=== PATIENT | male | born 1955 | race African-American/Black ===

== ENCOUNTER 2024-12-25 16:41 | Inpatient (IN) | payer OTHER, SELFPAY ==
[2024-12-25 18:02] LABS: Absolute Lymphocytes (CBC) 0.8 K/uL (0.7-4.9); Hematocrit 35.9 % (39.6-49.0); Hemoglobin 11.6 g/dL (13.6-17.9); MCH 27.5 pg (27.0-35.0); MCHC 32.4 g/dL (32.0-36.0); MCV 84.8 fL (80-100); MPV 8.4 fL (7.6-11.3); Nucleated RBC Absolute Count 0.0 (0-0); Nucleated Red Blood Cells % 0.1 % (0-0); RBC Red Blood Cell Count 4.23 M/uL (4.33-5.43); White Blood Count 12.00 thou/uL (4.3-10.9)
[2024-12-25 18:11] LABS: PT Prothrombin Time 13.2 SECONDS (10-13.0); PTT, Activated Partial Thromb 28.9 SECONDS (27.2-37.4); Protime INR 1.17
[2024-12-25 18:21] LABS: ALT/SGPT 35.0 U/L (16-61); AST/SGOT 25.0 U/L (15-37); Albumin 3.2 g/dL (3.4-5.0); Albumin/Globulin Ratio 0.7 (1.1-1.8); Alkaline Phosphatase 97.0 U/L (45-117); Anion Gap 13.9 mEq/L (5.0-15.0); BUN Blood Urea Nitrogen 48.0 mg/dL (7-18); Globulin 4.5 g/dL (2.3-3.5); Glucose Level 115.0 mg/dL (74-106); Potassium 3.9 mEq/L (3.5-5.1)
[2024-12-25] MEDS: VANCOMYCIN 1.5 GM in NA CHLORIDE 0.9% 500 ML IVPB ONE (19:00)
[2024-12-25] MEDS ORDERED: NA CHLORIDE 0.9% 1,000 ML ONE (19:01)
--- NOTE | 2024-12-25 19:01 | EDPHYS ---
Physician Documentation [facility] Name: Yordan Doe Age: 69 yrs Sex: Male : 1955 Arrival Date: 12/25/2024 Time: 16:41 Bed 16 Private MD: ED Physician Remington Tiwari HPI: 12/25 17:42 This 69 yrs old Male presents to ER via Ambulatory with complaints of Wound Check. sb4 18:15 Patient thinks he was "bitten by a spider "5 days ago and has a wound on his left sb4 forearm. States that there is a "hole "in it and he has been squeezing it and pus has been coming out. One of his friends who is a nurse looked at it and told him to come to the ED. Historical: - Allergies: 17:02 No Known Allergies; ll1 - PMHx: 17:02 Hypertensive disorder; acid reflux; prostate CA, prostate problems; Myocardial ll1 infarction; - PSHx: 17:02 None; ll1 - Immunization history:: Adult Immunizations. - Infectious Disease History:: Denies. - Social history:: Smoking status: Patient reports the use of cigarette tobacco products, Reported history of juuling and/or vaping. ROS: 18:15 Constitutional: Negative for fever, chills, and weight loss, sb4 18:15 Skin: Positive for abscess, of the left wrist, 18:15 All other systems are negative, Exam: 18:15 Head/Face: Normocephalic, atraumatic. Eyes: Extra-ocular motions intact. Periorbital sb4 areas with no swelling, redness, or edema. ENT: Mucous membranes moist. Respiratory: No increased work of breathing, no retractions or nasal flaring. 18:15 Constitutional: The patient appears alert, awake, unkempt, 18:15 Skin: abscess, that is moderate sized, of the left wrist, with drainage, that is purulent, with surrounding cellulitis, that is mild, Vital Signs: 17:04 BP 95 / 57; Pulse 77; Resp 17; Temp 97.1; Pulse Ox 99% ; Weight 99.79 kg; Height 6 ft. ll1 1 in. ; Pain 7/10; 18:03 BP 109 / 60; Pulse 70; Resp 16; Temp 97.7; Pulse Ox 100% ; ts3 19:00 BP 121 / 61; Pulse 61; Resp 18; Pulse Ox 100% on R/A; kj2 19:54 BP 125 / 71; Pulse 64; Resp 18; Pulse Ox 100% on R/A; kj2 17:04 Body Mass Index 29.03 (99.79 kg, 185.42 cm) ll1 17:04 Pain Scale: Adult ll1 MDM: 16:57 Medical Screening Exam initiated sb4 18:16 Differential diagnosis: Cellulitis, abscess, osteomyelitis, diabetic wound. sb4 18:37 Data reviewed: vital signs, nurses notes, lab test result(s), radiologic studies, and sb4 as a result, I will admit patient. Consideration of Admission/Observation Patient was admitted/placed on observation. Management of patient was discussed with the following: Color Finisher: Dr. Rob, agrees to consult - wants IV abx and NPO at midnight in case for surgical debriedment . Care significantly affected by the following chronic conditions: Hypertension. Counseling: I had a detailed discussion with the patient and/or guardian regarding the historical points, exam findings, and any diagnostic results supporting the discharge/admit diagnosis, lab results, radiology results, the need for further work-up and treatment in the hospital. 18:38 Independent interpretation of the following test(s) in the Emergency Department X-Ray: sb4 My interpretation is My interpretation of the left wrist x-ray images is no gas in the tissue or evidence of osteomyelitis. 12/25 17:08 Order name: Blood Culture Adult (2) sb4 12/25 17:08 Order name: CBC with Diff; Complete Time: 18:03 sb4 12/25 17:08 Order name: CMP; Complete Time: 18:22 sb4 12/25 17:08 Order name: Lactate w/ 2H reflex if indic.; Complete Time: 18:20 sb4 12/25 17:08 Order name: Protime (+inr); Complete Time: 18:11 sb4 12/25 17:08 Order name: Ptt, Activated; Complete Time: 18:11 sb4 12/25 17:28 Order name: Glucose, Ancillary Testing; Complete Time: 17:28 EDMS 12/25 17:03 Order name: Wrist Left (3 View) XRAY; Complete Time: 19:32 sb4 12/25 17:08 Order name: Accucheck; Complete Time: 17:17 sb4 12/25 17:08 Order name: Cardiac monitoring; Complete Time: 17:57 sb4 12/25 17:08 Order name: IV Saline Lock - Large Bore; Complete Time: 17:53 sb4 12/25 17:08 Order name: Labs collected and sent; Complete Time: 17:53 sb4 12/25 17:08 Order name: O2 Per Protocol; Complete Time: 17:57 sb4 12/25 17:08 Order name: O2 Sat Monitoring; Complete Time: 17:57 sb4 12/25 17:08 Order name: Vital Signs; Complete Time: 18:02 sb4 Administered Medications: 19:07 Drug: vancoMYCIN IVPB 1.5 grams IVPB at calculated rate once Route: IVPB; Rate: kj2 calculated rate; Site: left antecubital; 22:09 Follow up: IV Status: Completed infusion; IV Intake: 500ml kj2 19:13 Drug: NS 0.9% IV 1000 ml IV at 1 bolus Per protocol; to be given as a bolus over 60 kj2 minutes Route: IV; Rate: 1 bolus; Site: left antecubital; 22:09 Follow up: IV Status: Completed infusion kj2 Disposition: 12/26 13:49 Co-signature as Attending Physician, Remington Tiwari MD I agree with the assessment and wesly plan of care. Disposition Summary: 12/25/24 19:01 Hospitalization Ordered Notes: Hospitalization Status: Inpatient Admission sb4 Provider: Rahul Danielson Location: Telemetry/[facility] (Inpatient) sb4 Condition: Fair sb4 Problem: new sb4 Symptoms: are unchanged sb4 Bed/Room Type: Standard sb4 Room Assignment: 419(12/25/24 20:19) rv1 Diagnosis - Cutaneous abscess of left upper limb sb4 - Acute kidney failure, unspecified sb4 Forms: - Medication Reconciliation Form sb4 - SBAR form sb4 - Leadership Thank You Letter sb4 Signatures: Dispatcher [employer] Remington Story MD MD cha Lewis, Lynsay, RN RN ll1 Raegan Raza PA-C PACasandra sb4 Pratibha Lopez rv1 Laila Brown RN RN kj2 Corrections: (The following items were deleted from the chart) 12/25 17:09 17:09 BLOOD CULTURE*+BA.LAB.BRZ ordered. EDMS EDMS 17: 17:09 CBC+H.LAB.BRZ ordered. EDMS EDMS 17: 17:09 COMPREHENSIVE METABOLIC PANEL+C.LAB.BRZ ordered. EDMS EDMS : 17:09 LACTATE+C.LAB.BRZ ordered. EDMS EDMS : 17:09 PROTIME (+INR)+COAG.LAB.BRZ ordered. EDMS EDMS : 17:09 PTT, ACTIVATED+COAG.LAB.BRZ ordered. EDMS EDMS 20:19 19:01 sb4 rv1
--- NOTE | 2024-12-25 19:01 | ER ---
Nurse's Notes [facility] Name: Yordan Doe Age: 69 yrs Sex: Male : 1955 Arrival Date: 12/25/2024 Time: 16:41 Bed 16 Private MD: Diagnosis: Cutaneous abscess of left upper limb;Acute kidney failure, unspecified Presentation: 12/25 17:04 Chief complaint: Patient states: L wrist abscess for 5 days getting worse each day. ll1 Coronavirus screen: Client denies travel out of the [place] in the last 14 days. At this time, the client does not indicate any symptoms associated with coronavirus-19. Ebola Screen: Patient denies travel to an Ebola-affected area in the 21 days before illness onset. Initial Sepsis Screen: Does the patient meet any 2 criteria? No. Patient's initial sepsis screen is negative. Does the patient have a suspected source of infection? No. Patient's initial sepsis screen is negative. Risk Assessment: Do you want to hurt yourself or someone else? Patient reports no desire to harm self or others. Onset of symptoms was December 21, 2024. 17:04 Method Of Arrival: Ambulatory ll1 17:04 Acuity: DERIK 3 ll1 Triage Assessment: 17:10 General: Appears distressed, uncomfortable, Behavior is calm, cooperative, appropriate ll1 for age. Pain: Complains of pain in L wrist Quality of pain is described as aching. Derm: Abscess located on L wrist is nickel sized, has purulent drainage, is hot to touch, is red, is raised. Musculoskeletal: Circulation, motion, and sensation intact. Capillary refill < 3 seconds, in left fingers. Historical: - Allergies: 17:02 No Known Allergies; ll1 - PMHx: 17:02 Hypertensive disorder; acid reflux; prostate CA, prostate problems; Myocardial ll1 infarction; - PSHx: 17:02 None; ll1 - Immunization history:: Adult Immunizations. - Infectious Disease History:: Denies. - Social history:: Smoking status: Patient reports the use of cigarette tobacco products, Reported history of juuling and/or vaping. Screenin:01 [facility] ED Fall Risk Assessment (Adult) History of falling in the last 3 months, kj2 including since admission No falls in past 3 months (0 pts) Confusion or Disorientation No (0 pts) Intoxicated or Sedated No (0 pts) Impaired Gait No (0 pts) Mobility Assist Device Used No (0 pt) Altered Elimination No (0 pt) Score/Fall Risk Level 0 - 2 = Low Risk Maintained a safe environment, Hourly rounding (assess needs \T\ fall precautionary measures) done. Abuse screen: Denies threats or abuse. Denies injuries from another. Nutritional screening: No deficits noted. Tuberculosis screening: No symptoms or risk factors identified. Assessment: 17:30 General: Appears in no apparent distress. Behavior is cooperative. Pain: Complains of kj2 pain in left wrist Pain currently is 4 out of 10 on a pain scale. Neuro: Level of Consciousness is awake, alert, obeys commands, Oriented to person, place, time, situation. Cardiovascular: Patient's skin is warm and dry. Respiratory: Airway is patent Respiratory effort is unlabored. GI: No signs and/or symptoms were reported involving the gastrointestinal system. : No signs and/or symptoms were reported regarding the genitourinary system. 18:30 Reassessment: Patient appears in no apparent distress at this time. Patient and/or kj2 family updated on plan of care and expected duration. Pain level reassessed. Patient is alert, oriented x 3, equal unlabored respirations, skin warm/dry/pink. 19:55 Reassessment: Patient appears in no apparent distress at this time. Patient and/or kj2 family updated on plan of care and expected duration. Pain level reassessed. Patient is alert, oriented x 3, equal unlabored respirations, skin warm/dry/pink. Vital Signs: 17:04 BP 95 / 57; Pulse 77; Resp 17; Temp 97.1; Pulse Ox 99% ; Weight 99.79 kg; Height 6 ft. ll1 1 in. ; Pain 7/10; 18:03 BP 109 / 60; Pulse 70; Resp 16; Temp 97.7; Pulse Ox 100% ; ts3 19:00 BP 121 / 61; Pulse 61; Resp 18; Pulse Ox 100% on R/A; kj2 19:54 BP 125 / 71; Pulse 64; Resp 18; Pulse Ox 100% on R/A; kj2 17:04 Body Mass Index 29.03 (99.79 kg, 185.42 cm) ll1 17:04 Pain Scale: Adult ll1 ED Course: 16:44 Patient arrived in ED. im 16:56 Raegan Raza PA-C is PHCP. sb4 16:56 Remington Tiwari MD is Attending Physician. sb4 17:05 Triage completed. ll1 17:05 Arm band placed on Patient placed in an exam room, on a stretcher. ll1 17:30 Inserted saline lock: 20 gauge in left antecubital area, using aseptic technique. Blood ts3 collected. Flushed with 10 mL NS. 17:50 First set of blood cultures drawn by me, Second set of blood cultures drawn. ts3 17:53 Initial lab(s) drawn, by labor relations worker, sent to lab. ts3 17:59 Laila Brown, RN is Primary Nurse. kj2 18:00 Patient has correct armband on for positive identification. Bed in low position. Call kj2 light in reach. Provided Education on: call light. 18:02 Wrist Left (3 View) XRAY In Process Unspecified. EDMS 19:00 Rahul Danielson is Hospitalizing Provider. sb4 22:08 No provider procedures requiring assistance completed. Patient admitted, IV remains in kj2 place. Administered Medications: 19:07 Drug: vancoMYCIN IVPB 1.5 grams IVPB at calculated rate once Route: IVPB; Rate: kj2 calculated rate; Site: left antecubital; 22:09 Follow up: IV Status: Completed infusion; IV Intake: 500ml kj2 19:13 Drug: NS 0.9% IV 1000 ml IV at 1 bolus Per protocol; to be given as a bolus over 60 kj2 minutes Route: IV; Rate: 1 bolus; Site: left antecubital; 22:09 Follow up: IV Status: Completed infusion kj2 Medication: 19:56 VIS not applicable for this client. kj2 Intake: 22:09 IV: 500ml; Total: 500ml. kj2 Outcome: 19:01 Decision to Hospitalize by Provider. sb4 22:09 Admitted to Tele accompanied by tech, via wheelchair, kj2 22:09 Condition: stable kj2 22:09 Instructed on the need for admit, 22:10 Patient left the ED. kj2 Signatures: Dispatcher [employer] EDMS Mayco Jordan RN RN ll1 Raegan Raza PA-C PA-C sb4 Mary Carmen Adler Laila Ibarra, RN RN kj2 Lucita Fonseca ts3 Corrections: (The following items were deleted from the chart) 17: 17:04 Height 6 ft. 1 in.; ll1 ll1 17:54 17:53 Inserted saline lock: 20 gauge in left antecubital area, using aseptic technique. ts3 Blood collected. Flushed with 10 mL NS ts3
--- NOTE | 2024-12-25 19:31 | RAD REPORT ---
EXAM: XR Wrist Left 3 View HISTORY: [facility] MAIN abscess, osteo/gas r/o Bed Name: IW1 COMPARISON: None TECHNIQUE: 3 views of the left wrist. FINDINGS: No evidence of acute fracture or dislocation. Extensive arthritic changes throughout the wr ist, with erosive changes of the carpus, subchondral sclerosis, as well as joint space narrowing along the radiocarpal articulation. Moderate arthritic changes at the first metatarsophalangeal artic ulation with erosions and subluxation as well. Pronounced soft tissue swelling about the wrist most pronounced posteriorly and medially. IMPRESSION: Extensive erosive changes with adjacent soft tissue prominence, could represent sequelae of gout, fatimah aubrey inflammatory erosive arthritides.
[2024-12-25] MEDS ORDERED: ACETAMINOPHEN 325 MG TABLET PO PRN (20:21)
[2024-12-25] MEDS ORDERED: HYDRALAZINE HCL 20 MG/ML VIAL IV PRN (20:33)
--- NOTE | 2024-12-25 20:35 | P.HP ---
Certification for Inpatient Patient admitted to: Inpatient With expected LOS: >2 Midnights Patient will require the following post-hospital care: Home Health Services (Wound treatment on discharge.) Practitioner: I am a practitioner with admitting privileges, knowledge of patient current condition, hospital course, and medical plan of care. Services: Services provided to patient in accordance with Admission requirements found in Title 42 Section 412.3 of the Code of Federal Regulations Patient History Date of Service: 12/25/24 Reason for admission: Open wound abscess left hand History of Present Illness: Patient is a pleasant 69-year-old male with past medical history of essential hypertension, BPH, GERD, arthritis, who reports to ER with an open wound abscess left hand. Patient thinks is a spider bite. States 5 days ago, he noticed a small erythematous spot on his left hand with induration, states he squeezed on it resulting to an open wound, states the wound eventually became bigger, with increased drainage nonpurulent. Patient states he started having increased pain from the wound site, states one of his friend who is a nurse took a look a look at the wound today, and told him he needs to go to the ER right away which he did. Patient denies of any chills, fever, chest pain, short of breath, or any other discomfort except as identified. During admission assessment, patient wound to his left hand, has an abscess component, and appears tunneling, with eschar on the surface. Patient will benefit from wound/abscess debri felix. According to report received from the ER provider, states Dr. Rob was consulted, he requested to order antibiotics, and n.p.o. after midnight for debridement in AM.. Patient remains afebrile at this time. Allergies No Known Allergies Allergy (Unverified 12/25/24 20:44) Home Medications: Docosahexanoic AC/Epa [Fish Oil 1,000 MG*] 1 cap PO DAILY 12/25/24 Ferrous Sulfate [Iron] 325 mg PO DAILY 12/25/24 Ibuprofen 800 mg PO BID PRN 12/25/24 Lisinopril [Zestril] 2.5 mg PO DAILY 12/25/24 Pantoprazole [Protonix Tab*] 1 tab PO DAILY 12/25/24 Tamsulosin [Flomax] 0.4 mg PO DAILY 12/25/24 - Past Medical/Surgical History Diabetic: No -: BPH. -: Essential hypertension. -: GERD -: Arthritis Past Surgical History: Reviewed- Non-Contributory -: State he does not have any past surgical history - Family History Father -: Heart disease, Diabetes, Kidney disease Mother -: Heart disease, Diabetes Brother -: Heart disease, Diabetes Sister -: Heart disease, Diabetes - Social History Smoking Status: Former smoker Alcohol use: No CD- Drugs: No Caffeine use: No Place of Residence: Home Review of Systems 10-point ROS is otherwise unremarkable General: Other (Left hand open wound abscess with pain.) Integumentary: Other (Left hand open wound abscess.) Physical Examination - Physical Exam General: Alert, In no apparent distress, Oriented x3, Cooperative HEENT: Atraumatic, Normocephalic, PERRLA, Mucous membr. moist/pink, Sclerae nonicteric Neck: Supple, 2+ carotid pulse no bruit, No LAD, Without JVD or thyroid abnormality Respiratory: Clear to auscultation bilaterally, Normal air movement Cardiovascular: No edema, Normal pulses, Regular rate/rhythm, No gallops, No rubs, No murmurs Capillary refill: <2 Seconds Gastrointestinal: Normal bowel sounds, Soft and benign, Non-distended, W/out hepatomegaly, No ascites, No tenderness, No masses, No rebound, No guarding Musculoskeletal: No clubbing, No swelling, No contractures, No erythema, Tenderness (Both knees secondary to arthritis) Integumentary: No rashes, No cyanosis, Skin lesion, Tenderness/swelling (left wound/ abscess), Other (Open wound/abscess left hand.) Neurological: Normal gait, Normal speech, Normal strength at 5/5 x4 extr, Normal tone, Sensation intact, Cranial nerves 3-12 intact, Normal reflexes 2+, Normal affect Lymphatics: No axilla or inguinal lymphadenopathy External genitalia: Non-tender (According to patient.) - Studies Laboratory Data (last 24 hrs) 12/25/24 12/25/24 12/25/24 17:50 17:50 17:50 WBC 12.00 H Hgb 11.6 L Hct 35.9 L Plt Count 245 PT 13.2 H INR 1.17 APTT 28.9 Sodium 138 Potassium 3.9 BUN 48 H Creatinine 2.31 H Glucose 115 H Total Bilirubin 0.3 AST 25 ALT 35 Alkaline Phosphatase 97 Male Exam - Male Exam Inguinal exam: No hernias Assessment and Plan - Plan Patient admitted to inpatient with diagnosis of open wound/abscess left hand, no purulent drainage or foul ordor noted (1)Left Hand open wound/abscess. -Consult Dr. Rob for debridement. -N.p.o. after midnight. - D5 1/2 NS at 75ml/ hr. -Consult wound care team. -Wound culture. -Order for wound to be cleansed with NS, and apply wet-to-dry Betadine dressing, cover with 4 x 4 wrap with Kerlix on admission and daily. -Order for preop magnesium, result is normal. -Zosyn 3.375 g IV every 8 hours. -Vancomycin 1.5 g every 24 hours. -[place] 7.5/325 mg 1 as needed every 6 hours. (2)Chronic essential hypertension. -Hydralazine 10 mg IV as needed every 6 hours. -Lisinopril 2.5 mg p.o. daily. (3)Chronic BPH. -Continue tamsulosin 0.4 mg p.o. nightly. (4) chronic GERD. -Continue home medication Protonix 40 mg p.o. daily. (5)Explained the entire treatment plan to the patient, solicit questions answered and voiced understanding. Discharge Plan: Home Plan to discharge in: Greater than 2 days - Advance Directives Does patient have a Living Will: No Does patient have a Durable POA for Healthcare: No - Code Status/Comfort Care Code Status Assessed: Yes Code Status: Full Code Critical Care: No Time Spent Managing Pts Care (In Minutes): 55
[2024-12-25] MEDS: HYDROCODONE/APAP 7.5/325 MG TAB PO PRN (22:10)
[2024-12-25] MEDS: D5 0.45 NS 1,000 ML IV SCH (22:10)
[2024-12-25 22:35] VITALS: BMI 29.0
[2024-12-26] MEDS: PIPER TAZO 3.375 GM in NA CHLORIDE 0.9% 100 ML IV SCH (00:53)
[2024-12-26 05:21] LABS: Absolute Lymphocytes (CBC) 0.9 K/uL (0.7-4.9); Hematocrit 31.7 % (39.6-49.0); Hemoglobin 11.0 g/dL (13.6-17.9); MCH 29.1 pg (27.0-35.0); MCHC 34.7 g/dL (32.0-36.0); MCV 84.0 fL (80-100); MPV 8.1 fL (7.6-11.3); Nucleated RBC Absolute Count 0.0 (0-0); Nucleated Red Blood Cells % 0.0 % (0-0); RBC Red Blood Cell Count 3.78 M/uL (4.33-5.43); White Blood Count 8.00 thou/uL (4.3-10.9)
[2024-12-26 05:38] LABS: ALT/SGPT 29.0 U/L (16-61); AST/SGOT 21.0 U/L (15-37); Albumin 2.6 g/dL (3.4-5.0); Albumin/Globulin Ratio 0.7 (1.1-1.8); Alkaline Phosphatase 88.0 U/L (45-117); Anion Gap 8.0 mEq/L (5.0-15.0); BUN Blood Urea Nitrogen 39.0 mg/dL (7-18); Globulin 3.7 g/dL (2.3-3.5); Glucose Level 142.0 mg/dL (74-106); Magnesium 2.3 mg/dL (1.6-2.4); Potassium 4.0 mEq/L (3.5-5.1)
[2024-12-26] MEDS: ALBUMIN HUMAN 25% 100 ML IV ONE (06:35)
[2024-12-26] MEDS: PNEUMOCOCCAL VACCINE 0.5 ML IMVAC ONE (08:00)
[2024-12-26] MEDS ORDERED: Ringers Lactate 1,000 ML IV ONE (11:35)
[2024-12-26] MEDS ORDERED: LIDOCAINE 1% MPF 5 ML VIAL ONE (12:31)
[2024-12-26] MEDS: BUPIVACAINE 0.5% PF 10 ML VIAL ONE (13:02)
[2024-12-26] MEDS: COLLAGENASE 30 GM OINTMENT TOP ONE (13:03)
--- NOTE | 2024-12-26 13:04 | P.BOP ---
Preoperative diagnosis: necrotic infected ulcer left forearm Postoperative diagnosis: same Primary procedure: Excisional debridement down to fascia of necrotic infected ulcer left forea Secondary procedure: 4.5 x 3 x 1cm Estimated blood loss: <5cc Specimen: necrotic tissue Findings: see dictation Anesthesia: MAC Complications: None Drain(s): Other (wet to dry NS) Transferred to: Recovery Room Condition: Good
--- NOTE | 2024-12-26 13:06 | CON ---
Date of Consultation: 12/26/2024 Diagnosis: Necrotic ulcer on the left forearm region. History Of Present Illness: This is a case of a 69-year-old patient, who comes with least a week his tory of a wound on his left arm. For the last 5 days, it got worse. He thinks it probably was a spi bebe bite, he is not sure. He never saw a spider, developed into the necrotic wound. He has been try ing to take care of himself, but he just keeps getting deeper and bigger with purulent discharge, so he comes to the ER last night. He was admitted to the hospital and a surgical consult was obtained f or debridement. The etiology of that is unknown. He denies any dysuria, hematuria, hematochezia, me karl. Denies any recent traveling out of the country. Denies any family member sick at home. Denie s any chills, fever, chest pain, or shortness of breath. Review of Systems: Ten points otherwise unremarkable. Allergies: NONE. Medications: Fish oil, lisinopril, Flomax, Protonix. Surgical History: None. Past Medical History: Includes hypertension, GERD, BPH, arthritis. Family History: Diabetes. He does not smoke. He does not drink alcohol. Physical Examination: Vital Signs: Reviewed. General: The patient is awake, alert. HEENT: Pupils are equal and reactive. Anicteric. Neck: Supple. Chest: Clear. Heart: S1, S2. Abdomen: Soft and depressible. No guarding or rebound. Extremities: Over the left forearm, the patient has an open wound necrotic area with cellulitis pres ent. There is fibrin present too, unstageable at this moment since we have to do debridement first. At least, no more tendon exposed at first site. Peripheral pulses still present with full range of motion. Laboratory Data: Blood work shows WBC count of 12, hemoglobin of 11.6, platelets 245, chloride is 10 9, creatinine is 2.31, total bilirubin of 0.3. Wrist and forearm x-ray, distal forearm x-ray shows e xtensive erosive changes with adjacent soft tissue prominence. With erosive inflammatory arthritis, cannot rule out gout. Assessment: This is a 69-year-old patient, who comes to us with a necrotic wound in the left forearm . Still etiology of that is unknown. He claimed maybe a spider bite. He never so it. We always person ve also the x-rays showing the evidence of some arthritic changes. Also curious about any malignancy , although he say that he does not recall or seen this before. So, we are going to take him for debr idement at least subcutaneous or deeper if needed and culture in that area. The benefits, alternativ es, and risks fully explained, which include, but not limited to infection, bleeding, damage to adjac ent structures, anesthesia complication, nonhealing wound, [place], and even . He also understands t his may not relieve his symptoms. He might need more than one surgical intervention. He understands he will require wound care. JUAN CARLOS/ABEL Voice ID: [id number] Report ID: [id number]
[2024-12-26] MEDS: TAMSULOSIN 0.4 MG SR CAP PO SCH (20:33)
--- NOTE | 2024-12-27 00:46 | OP ---
Date of Procedure: 12/26/2024 Surgeon: Shawn Rob MD Preoperative Diagnosis: Necrotic infected ulcer, left forearm. Postoperative Diagnosis: Necrotic infected ulcer, left forearm. Procedure: Excisional debridement down to fascia of necrotic infected left forearm ulcers about 4.5 x 3 x 1 cm. Anesthesia: MAC plus local. Complications: None. Finding: Necrotic tissue. Estimated Blood Loss: Less than 5 cc. Indication: This is the case of a 69-year-old male patient who comes to us with known ulcer on the l eft forearm of unknown origin. He thinks it could be a spider bite. He says it is getting deeper an d deeper, necrotic, so he came to the ER, admitted and a surgical consult was obtained for debridemen t. The benefits, alternatives, and risks of debridement were fully explained, which included, but no t limited to, infection, bleeding, damage to adjacent structures, anesthesia complication, recurrence , [place], and even . He also understands this may not relieve symptoms. He might need more than on e surgical intervention. He will require wound care. He signed a consent. Description Of Procedure: The patient was brought to the operating room, placed in supine position. Anesthesia was done without complication. The left forearm was prepped and draped in usual sterile fashion. Time-out was called. Local anesthesia was applied, followed by sharp incision of the necro tic tissue. We sent that also for cytology. Hemostasis was obtained. This goes down to fascia, louis s not seem to be involving the muscle, and I do not see any joint or tendons at this moment. The are a was irrigated. Hemostasis was obtained and the area was packed with Santyl, wet-to-dry. The patie nt tolerated the procedure well. The patient is in his way to recovery in stable condition. We advi sed the patient when he gets discharged to [facility]. JUAN CARLOS/ABEL Voice ID: [id number] Report ID: [id number]
[2024-12-27] MEDS: PANTOPRAZOLE 40MG TABLET PO SCH (06:37)
[2024-12-27 07:28] LABS: Absolute Lymphocytes (CBC) 0.9 K/uL (0.7-4.9); Hematocrit 32.3 % (39.6-49.0); Hemoglobin 11.3 g/dL (13.6-17.9); MCH 29.1 pg (27.0-35.0); MCHC 34.9 g/dL (32.0-36.0); MCV 83.2 fL (80-100); MPV 7.9 fL (7.6-11.3); Nucleated RBC Absolute Count 0.0 (0-0); Nucleated Red Blood Cells % 0.0 % (0-0); RBC Red Blood Cell Count 3.89 M/uL (4.33-5.43); White Blood Count 6.60 thou/uL (4.3-10.9)
[2024-12-27 07:59] LABS: ALT/SGPT 32.0 U/L (16-61); AST/SGOT 20.0 U/L (15-37); Albumin 2.6 g/dL (3.4-5.0); Albumin/Globulin Ratio 0.7 (1.1-1.8); Alkaline Phosphatase 84.0 U/L (45-117); Anion Gap 7.2 mEq/L (5.0-15.0); BUN Blood Urea Nitrogen 22.0 mg/dL (7-18); Globulin 3.9 g/dL (2.3-3.5); Glucose Level 105.0 mg/dL (74-106); Magnesium 1.8 mg/dL (1.6-2.4); Potassium 4.2 mEq/L (3.5-5.1)
[2024-12-27] MEDS: VANCOMYCIN 1.5 GM in NA CHLORIDE 0.9% 500 ML IVPB SCH (08:59)
[2024-12-27 13:02] VITALS: O2SAT 97
[2024-12-27 16:00] VITALS: BP 118/61; TEMP 98.1
[2024-12-28] MEDS ORDERED: VANCOMYCIN 1.75 GM in NA CHLORIDE 0.9% 500 ML IVPB SCH (06:00)
== END 2024-12-27 19:58 | disposition home or self-care (01) | DRG 264 ==
LOC: ER 16:41 → ERHOLD 20:12 → 4TH 21:11
PROVIDERS: ADMIT Hospitalist; ATTEND Hospitalist
PROC: 0JBH0ZZ Excision of Left Lower Arm Subcutaneous Tissue and Fascia, Open Approach (ICD-10-PCS; principal; 2024-12-26 10:45)
DX: I96 Gangrene, not elsewhere classified (principal); L02.414 Cutaneous abscess of left upper limb; N17.9 Acute kidney failure, unspecified; I10 Essential (primary) hypertension; I25.2 Old myocardial infarction; M19.90 Unspecified osteoarthritis, unspecified site; N40.0 Benign prostatic hyperplasia without lower urinary tract symptoms; K21.9 Gastro-esophageal reflux disease without esophagitis; S61.402A Unspecified open wound of left hand, initial encounter; S61.452A Open bite of left hand, initial encounter; F17.210 Nicotine dependence, cigarettes, uncomplicated; Z85.46 Personal history of malignant neoplasm of prostate; Z79.899 Other long term (current) drug therapy; W57.XXXA Bitten or stung by nonvenomous insect and other nonvenomous arthropods, initial encounter; Y93.9 Activity, unspecified; Y92.9 Unspecified place or not applicable; Y99.9 Unspecified external cause status
CPT/HCPCS: 36415; 80053; 80202; 82947; 83605; 83735; 84100; 85025; 85610; 85730; 87040; 88304; 88305; 90732; 96365; 96366; 99285; J2003; J2543; J2704; J3370; J3590; J7030; J7040; J7120; J7799; P9047